=== PATIENT | male | born 2000 | race Caucasian/White ===

== ENCOUNTER 2021-11-30 13:25 | Emergency (ER) | payer OTHER, SELFPAY ==
[2021-11-30 13:30] VITALS: BP 161/104; PULSE 120; RESP 20; TEMP 36.6; O2SAT 99; BMI 37.5
[2021-11-30] MEDS: LIDOCAINE 2% W/EPI INJ 1 ML INJ (13:44)
[2021-11-30] MEDS: IBUPROFEN 400 MG TABLET 800 MG PO (14:23)
[2021-11-30] MEDS: BACITRACIN OINT 0.9 GM PCKT 1 APPLIC TOP (14:25)
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
== END 2021-11-30 14:38 | disposition home or self-care (01) ==
PROVIDERS: Emergency Provider Nurse Practitioner Critical Care Medicine
DX: S01.81XA Laceration without foreign body of other part of head, initial encounter (principal); R45.88 Nonsuicidal self-harm
CPT/HCPCS: 12011; 99283

== ENCOUNTER 2023-07-16 14:37 | Emergency (ER) | payer OTHER, SELFPAY ==
[2023-07-16 14:54] VITALS: BP 141/95; PULSE 94; RESP 16; TEMP 36.6; O2SAT 97; BMI 33.7
--- NOTE | 2023-07-16 15:17 | PC.NURSE ---
Pt is Gluten Free and allergic to Tylenol.
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
--- NOTE | 2023-07-16 15:36 | PC.NURSE ---
Pt reports an overuse of energy drinks and coffee. Pt states for the past several months that he has stopped dreaming in his sleep and reports insomnia.
[2023-07-16 15:37] LABS: Add Manual Diff / Slide Review NO; Basophils Absolute Auto 0 /uL (0-100); Basophils Percent Auto 0.5 % (0-2); Eosinophils Absolute Auto 100 /uL (0-450); Hematocrit 46.8 % (41-53); Hemoglobin 16.1 g/dL (13.5-17.5); Lymphocytes Absolute Auto 1300 /uL (1100-4500); Mean Corpuscular HGB Conc 34.4 % (30-36); Mean Corpuscular Hemoglobin 30.4 PG (26-34); Mean Corpuscular Volume 88.2 fL (80-100); Monocytes Absolute Auto 600 /uL (0-900); Monocytes Percent Auto 8.9 % (3-14); Neutrophils Absolute Auto 4700 /uL (1500-7000); Neutrophils Percent Auto 69.6 % (50-75); Platelet Count 208 X10^3/uL (150-400); Red Cell Distribution Width 12.8 % (11.6-14.8); White Blood Cell Count 6.8 X10^3/uL (4.5-11.0)
[2023-07-16 15:47] LABS: Appearance Urine UA CLEAR; Bilirubin Urine UA NEGATIVE (NEGATIVE); Color Urine UA YELLOW; Glucose Urine UA NEGATIVE (Negative); Ketones Urine UA NEGATIVE (NEGATIVE); Leukocyte Esterase Urine UA NEGATIVE (NEGATIVE); Nitrite Urine UA NEGATIVE (Negative); Occult Blood Urine UA NEGATIVE (Negative); Protein Urine UA NEGATIVE (Negative); Specific Gravity Urine UA >=1.030 (1.000-1.035); Urobilinogen Urine UA 0.2 E.U./dL (0.2); pH Urine UA 5.5 (4.5-8.0)
[2023-07-16 15:48] LABS: Acetaminophen < 10 ug/mL (10-30); Alanine Aminotransferase 23 IU/L (<50); Albumin 4.4 g/dL (3.5-5.0); Albumin Globulin Ratio 1.3 (1.0-2.8); Alkaline Phosphatase 52 U/L (38-126); Aspartate Aminotransferase 24 IU/L (17-59); BUN Creatinine Ratio 19.6 (6-22); Bilirubin Total 0.8 mg/dL (0.2-1.3); Blood Urea Nitrogen 19 mg/dL (9-20); Calcium 9.5 mg/dL (8.4-10.2); Carbon Dioxide 29 mmol/L (22-32); Chloride 105 mmol/L (98-107); Estimated Glomerular Filt Rate > 60 mL/min (>60); Ethanol (ETOH) < 10 mg/dL; Globulin 3.4 g/dL (1.7-4.1); Glucose 88 mg/dL (70-100); HEMOLYSIS 27 (0-50); Potassium 4.2 mmol/L (3.4-5.1); Salicylate < 1.0 mg/dL (<20); Sodium 139 mmol/L (137-145); Total Protein 7.8 g/dL (6.3-8.2)
[2023-07-16 15:52] LABS: UR Morphine/Opiate cutoff 300 Negative (Negative); Ur Creatinine Normal (Normal); Ur Specific Gravity Normal (Normal); Urine Amphetamines Negative (Negative); Urine Barbiturates Negative (Negative); Urine Benzodiazepines Negative (Negative); Urine Cocaine Negative (Negative); Urine MDMA Negative (Negative); Urine Methadone Negative (Negative); Urine Methamphetamines Negative (Negative); Urine Oxycodone Negative (Negative); Urine Phencyclidine Negative (Negative); Urine Tetrahydrocannabinol Positive (Negative); Urine Tricyclic Antidepressant Negative (Negative); Urine pH Normal (Normal)
[2023-07-16 15:53] LABS: Bacteria Urine Occasional (0-1); Culture Indicated Urine Cult Not Indicated; Mucus Urine 2+ (Negative); RBC Urine 0-1/HPF (0-5/HPF); Squamous Epithelial Cell Urine None Seen (0-5/HPF); Urine Volume 10mL (spun); WBC Urine 0-1/HPF (0-5/HPF)
[2023-07-16 15:55] LABS: COVID19 -Nasal RAPID Negative (Negative)
[2023-07-16 16:04] LABS: Free T4, Direct Thyroxine 1.19 ng/dL (0.78-2.19)
[2023-07-16 16:18] LABS: Thyroid Stimulating Hormone 0.978 uIU/mL (0.47-4.68)
[2023-07-16] MEDS: OLANZapine ODT 10 MG TAB PO (16:48)
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
--- NOTE | 2023-07-16 17:23 | PC.NURSE ---
Pt is resting in bed, respirations even and unlabored. No distress noted. This sitter remains at bedside.
--- NOTE | 2023-07-16 18:28 | PC.NURSE ---
Spoke with Clif ALLEN at [facility] [phone]. They are working on a plan to accept this patient for IP treatment. They will call back with confirmation. Pt is currently asleep, if patient wakes-up please call Clif ALLEN so he can have a conversation with the patient.
[2023-07-16 19:07] VITALS: BP 116/76; PULSE 103; RESP 16; O2SAT 97
--- NOTE | 2023-07-16 20:35 | PC.NURSE ---
report called to ALEJANDRO Calvert at [facility], report given to EMS crew, pt putting scrubs on before transfer, pt cooperative with care
== END 2023-07-16 20:39 ==
PROVIDERS: Emergency Provider Emergency Medicine
DX: R45.851 Suicidal ideations (principal); R44.0 Auditory hallucinations; Z20.822 Contact with and (suspected) exposure to COVID-19
CPT/HCPCS: 36415; 80053; 80305; 80320; 80329; 81001; 84439; 84443; 85025; 87635; 99284; G0480

== ENCOUNTER 2023-07-26 21:45 | Emergency (ER) | payer MEDICAID, OTHER, SELFPAY ==
[2023-07-26 21:45] VITALS: BP 161/78; PULSE 118; RESP 16; TEMP 36.6; O2SAT 98; BMI 33.7
--- NOTE | 2023-07-26 21:54 | ED.PSYCH ---
HPI - Psych General Chief Complaint: Psychiatric Symptoms Stated Complaint: ANNALEE -> SI Time Seen by Provider: 07/26/23 21:49 History of Present Illness HPI Narrative: 23-year-old male with history of depression, PTSD presents with law enforcement for suicidal gesture. Patient took a picture of himself holding a knife and sent it to his cousin, who called 911. Patient had made several superficial cuts to his inner left forearm using scissors and ran into the kang. He states that he has experienced several stressors lately and was angry. He states that after talking to his cousin he feels much calmer. He does not want to kill himself, he denies suicidal intention or wanting to . Denies drug or alcohol use this evening. Related Data Previous Rx's Medication Instructions Recorded mupirocin 2 % topical ointment 1 applic topical BID #15 grams 11/30/21 Allergies Allergy/AdvReac Type Severity Reaction Status Date / Time Sulfa (Sulfonamide Allergy Unknown Verified 11/30/21 13:34 Antibiotics) acetaminophen AdvReac Intermediate Redness of Verified 11/30/21 13:38 Skin Review of Systems Review of Systems Narrative: See HPI Patient History Social History Smoking Status: Current every day smoker Smoking Status: Current every day smoker tobacco type: vaping alcohol intake frequency: holidays/special occasions only Substance Use Type: marijuana Exam Initial Vital Signs Initial Vital Signs: Vital Signs Temperature 98 F 07/26/23 21:45 Pulse Rate 118 H 07/26/23 21:45 Respiratory Rate 16 07/26/23 21:45 Blood Pressure 161/78 H 07/26/23 21:45 Pulse Oximetry 98 07/26/23 21:45 Oxygen Delivery Method Room Air 07/26/23 21:45 Const: Awake, alert, no acute distress, nontoxic appearing MSK: Multiple superficial abrasions in her left forearm, neurovascularly intact Skin: Warm, Dry, 5-6 superficial abrasions in her left forearm Neuro: AO x3, CN II-XII grossly intact, moves all extremities Psych: Flat affect, neutral mood, denying suicidal or homicidal ideations Course Orders Ordered: ED Orders 07/26/23 21:53 EKG-12 Lead Stat 07/26/23 21:59 UA Complete [Urinalysis and Microscopic] Stat Urine Drug Screen, Rapid Stat 07/26/23 22:00 Acetaminophen Stat CBC Auto Diff [Complete Blood Count AUTO DIFF] Stat CMP [Comprehensive Metabolic Panel] Stat Ethanol (ETOH) Stat Salicylate Stat TSH [Thyroid Stimulating Hormone] Stat 07/26/23 22:33 COVID19 -Nasal RAPID Stat Discontinued Medications Diphtheria/Tetanus/Acell Pertussis (Tet,Diph,Pertuss(Acell),Vac/Pf 0.5 Ml Syringe) 0.5 ml IM .ONCE ONE Stop: 07/26/23 21:55 Last Admin: 07/26/23 23:10 Dose: 0.5 ml Documented By: RODNEY Vital Signs Vital signs: Vital Signs - 8 hr 07/26/23 21:45 Temperature 98 F Pulse Rate 118 H Respiratory Rate 16 Blood Pressure 161/78 H Pulse Oximetry 98 Oxygen Delivery Method Room Air MDM - Psych Differential Diagnosis Differential diagnosis: Likely acute psychosis, chronic schizophrenia and suicidal ideation Lab Data 07/26/23 22:00 07/26/23 22:00 Labs: Lab Results 07/26/23 07/26/23 07/26/23 Range/Units 21:59 21:59 22:00 WBC 6.5 (4.5-11.0) X10^3/uL RBC 5.19 (4.5-5.9) X10^6/uL Hgb 15.7 (13.5-17.5) g/dL Hct 45.1 (41-53) % MCV 86.8 (80-100) fL MCH 30.3 (26-34) PG MCHC 34.9 (30-36) % RDW 12.7 (11.6-14.8) % Plt Count 210 (150-400) X10^3/uL Neut % (Auto) 63.5 (50-75) % Lymph % (Auto) 25.4 (25-40) % [place] % (Auto) 8.7 (3-14) % Eos % (Auto) 1.9 L (2-4) % Baso % (Auto) 0.5 (0-2) % Neut # (Auto) 4100 (5003-3661) /uL Lymph # (Auto) 1600 (4041-2523) /uL [place] # (Auto) 600 (0-900) /uL Eos # (Auto) 100 (0-450) /uL Baso # (Auto) 0 (0-100) /uL Sodium 136 L (137-145) mmol/L Potassium 3.8 (3.4-5.1) mmol/L Chloride 105 (98-107) mmol/L Carbon Dioxide 25 (22-32) mmol/L BUN 19 (9-20) mg/dL Creatinine 1.12 (0.66-1.25) mg/dL Estimated GFR > 60 (>60) mL/min BUN/Creatinine Ratio 17.0 (6-22) Glucose 148 H (70-100) mg/dL Calcium 9.3 (8.4-10.2) mg/dL Total Bilirubin 0.4 (0.2-1.3) mg/dL AST 22 (17-59) IU/L ALT 30 (<50) IU/L Alkaline Phosphatase 57 (38-126) U/L Total Protein 7.6 (6.3-8.2) g/dL Albumin 4.7 (3.5-5.0) g/dL Globulin 2.9 (1.7-4.1) g/dL Albumin/Globulin Ratio 1.6 (1.0-2.8) TSH 2.53 D (0.47-4.68) uIU/mL Urine Color Yellow Urine Appearance Clear Urine pH 5.5 TNP (4.5-8.0) Ur Specific [place] 1.020 (1.000-1.035) Urine Protein Negative (Negative) Urine Glucose (UA) Negative (Negative) g/dL Urine Ketones Negative (NEGATIVE) Urine Occult Blood Negative (Negative) Urine Nitrate Negative (Negative) Urine Bilirubin Negative (NEGATIVE) Urine Urobilinogen 0.2 (0.2) E.U./dL Ur Leukocyte Esterase Negative (NEGATIVE) Urine RBC None seen (0-5/HPF) Urine WBC None seen (0-5/HPF) Ur Squamous Epith Cells None seen (0-5/HPF) Urine Bacteria None seen (None) Ur Culture Indicated? Cult not indicated Vol Urine Centrifuged 10ml (spun) Salicylates < 1.0 (<20) mg/dL U Opiates 300ng/mL cut Negative (Negative) Ur Oxycodone Screen Negative (Negative) Urine Methadone Screen Negative (Negative) Acetaminophen < 10 (10-30) ug/mL Ur Barbiturates Screen Negative (Negative) U Tricyclic Antidepress Negative (Negative) Ur Phencyclidine Scrn Negative (Negative) Ur Amphetamines Screen Negative (Negative) U Methamphetamines Scrn Negative (Negative) Ur MDMA Scrn (Ecstasy) Negative (Negative) U Benzodiazepines Scrn Negative (Negative) Urine Cocaine Screen Negative (Negative) U Marijuana (THC) Screen Positive H (Negative) Urine Specific [place] TNP Ethyl Alcohol < 10 ( - 10) mg/dL Ur Creatinine TNP SARS-CoV-2 (PCR) (Negative) 07/26/23 Range/Units 22:33 WBC (4.5-11.0) X10^3/uL RBC (4.5-5.9) X10^6/uL Hgb (13.5-17.5) g/dL Hct (41-53) % MCV (80-100) fL MCH (26-34) PG MCHC (30-36) % RDW (11.6-14.8) % Plt Count (150-400) X10^3/uL Neut % (Auto) (50-75) % Lymph % (Auto) (25-40) % [place] % (Auto) (3-14) % Eos % (Auto) (2-4) % Baso % (Auto) (0-2) % Neut # (Auto) (1415-2050) /uL Lymph # (Auto) (3833-8449) /uL [place] # (Auto) (0-900) /uL Eos # (Auto) (0-450) /uL Baso # (Auto) (0-100) /uL Sodium (137-145) mmol/L Potassium (3.4-5.1) mmol/L Chloride (98-107) mmol/L Carbon Dioxide (22-32) mmol/L BUN (9-20) mg/dL Creatinine (0.66-1.25) mg/dL Estimated GFR (>60) mL/min BUN/Creatinine Ratio (6-22) Glucose (70-100) mg/dL Calcium (8.4-10.2) mg/dL Total Bilirubin (0.2-1.3) mg/dL AST (17-59) IU/L ALT (<50) IU/L Alkaline Phosphatase (38-126) U/L Total Protein (6.3-8.2) g/dL Albumin (3.5-5.0) g/dL Globulin (1.7-4.1) g/dL Albumin/Globulin Ratio (1.0-2.8) TSH (0.47-4.68) uIU/mL Urine Color Urine Appearance Urine pH (4.5-8.0) Ur Specific [place] (1.000-1.035) Urine Protein (Negative) Urine Glucose (UA) (Negative) g/dL Urine Ketones (NEGATIVE) Urine Occult Blood (Negative) Urine Nitrate (Negative) Urine Bilirubin (NEGATIVE) Urine Urobilinogen (0.2) E.U./dL Ur Leukocyte Esterase (NEGATIVE) Urine RBC (0-5/HPF) Urine WBC (0-5/HPF) Ur Squamous Epith Cells (0-5/HPF) Urine Bacteria (None) Ur Culture Indicated? Vol Urine Centrifuged Salicylates (<20) mg/dL U Opiates 300ng/mL cut (Negative) Ur Oxycodone Screen (Negative) Urine Methadone Screen (Negative) Acetaminophen (10-30) ug/mL Ur Barbiturates Screen (Negative) U Tricyclic Antidepress (Negative) Ur Phencyclidine Scrn (Negative) Ur Amphetamines Screen (Negative) U Methamphetamines Scrn (Negative) Ur MDMA Scrn (Ecstasy) (Negative) U Benzodiazepines Scrn (Negative) Urine Cocaine Screen (Negative) U Marijuana (THC) Screen (Negative) Urine Specific [place] Ethyl Alcohol ( - 10) mg/dL Ur Creatinine SARS-CoV-2 (PCR) Negative (Negative) MDM Narrative Medical decision making narrative: Patient with several superficial lacerations on his inner left arm stating that he initially wanted to hurt himself, however now stating that he does not have any suicidal intentions and was merely angry and stressed. He states that he was able to talk to his cousin who calm him down. Patient medically cleared, has been calm and cooperative, continues to deny any suicidal or homicidal ideations. We were able to contact his family members, particularly his grandmother, who came to the emergency department. She was able to safety plan with the patient she was no reservations taking him home concerning his safety. Patient discharged to the care of his family in stable condition Discharge Plan Departure Patient Disposition: Home Clinical Impression: Stress reaction Instructions: Stress (Alternative Therapy) Activity Restrictions/Additional Instructions: Continue to take all of your psychiatric medications as prescribed. Follow up with your counselor. Call 911 or [phone] if you experience worsening suicidal thoughts Prescriptions: No Action mupirocin 2 % ointment 1 applic topical BID Qty: 15 0RF Stand Alone Forms: Patient Portal/API
[2023-07-26 22:14] LABS: Add Manual Diff / Slide Review NO; Basophils Absolute Auto 0 /uL (0-100); Basophils Percent Auto 0.5 % (0-2); Eosinophils Absolute Auto 100 /uL (0-450); Eosinophils Percent Auto 1.9 % (2-4); Hematocrit 45.1 % (41-53); Hemoglobin 15.7 g/dL (13.5-17.5); Lymphocytes Absolute Auto 1600 /uL (1100-4500); Lymphocytes Percent Auto 25.4 % (25-40); Mean Corpuscular HGB Conc 34.9 % (30-36); Mean Corpuscular Hemoglobin 30.3 PG (26-34); Mean Corpuscular Volume 86.8 fL (80-100); Monocytes Absolute Auto 600 /uL (0-900); Monocytes Percent Auto 8.7 % (3-14); Neutrophils Absolute Auto 4100 /uL (1500-7000); Neutrophils Percent Auto 63.5 % (50-75); Platelet Count 210 X10^3/uL (150-400); Red Blood Cell Count 5.19 X10^6/uL (4.5-5.9); Red Cell Distribution Width 12.7 % (11.6-14.8); White Blood Cell Count 6.5 X10^3/uL (4.5-11.0)
[2023-07-26 22:24] LABS: Appearance Urine UA CLEAR; Bilirubin Urine UA NEGATIVE (NEGATIVE); Color Urine UA YELLOW; Glucose Urine UA NEGATIVE (Negative); Ketones Urine UA NEGATIVE (NEGATIVE); Leukocyte Esterase Urine UA NEGATIVE (NEGATIVE); Nitrite Urine UA NEGATIVE (Negative); Occult Blood Urine UA NEGATIVE (Negative); Protein Urine UA NEGATIVE (Negative); Urobilinogen Urine UA 0.2 E.U./dL (0.2); pH Urine UA 5.5 (4.5-8.0)
[2023-07-26 22:28] LABS: UR Morphine/Opiate cutoff 300 Negative (Negative); Urine Amphetamines Negative (Negative); Urine Barbiturates Negative (Negative); Urine Benzodiazepines Negative (Negative); Urine Cocaine Negative (Negative); Urine MDMA Negative (Negative); Urine Methadone Negative (Negative); Urine Methamphetamines Negative (Negative); Urine Phencyclidine Negative (Negative); Urine Tetrahydrocannabinol Positive (Negative); Urine Tricyclic Antidepressant Negative (Negative)
[2023-07-26 22:29] LABS: Urine Oxycodone Negative (Negative)
[2023-07-26 22:34] LABS: Bacteria Urine None Seen; Culture Indicated Urine Cult Not Indicated; RBC Urine None Seen (0-5/HPF); Squamous Epithelial Cell Urine None Seen (0-5/HPF); Urine Volume 10mL (spun); WBC Urine None Seen (0-5/HPF)
--- NOTE | 2023-07-26 22:49 | PC.NURSE ---
07/25 @ 2097 Patient up to the BR
[2023-07-26 22:50] LABS: COVID19 -Nasal RAPID Negative (Negative)
[2023-07-26 22:58] LABS: Acetaminophen < 10 ug/mL (10-30); Alanine Aminotransferase 30 IU/L (<50); Albumin 4.7 g/dL (3.5-5.0); Albumin Globulin Ratio 1.6 (1.0-2.8); Alkaline Phosphatase 57 U/L (38-126); Aspartate Aminotransferase 22 IU/L (17-59); Bilirubin Total 0.4 mg/dL (0.2-1.3); Blood Urea Nitrogen 19 mg/dL (9-20); Calcium 9.3 mg/dL (8.4-10.2); Carbon Dioxide 25 mmol/L (22-32); Chloride 105 mmol/L (98-107); Estimated Glomerular Filt Rate > 60 mL/min (>60); Ethanol (ETOH) < 10 mg/dL; Globulin 2.9 g/dL (1.7-4.1); Glucose 148 mg/dL (70-100); HEMOLYSIS < 15 (0-50); Potassium 3.8 mmol/L (3.4-5.1); Salicylate < 1.0 mg/dL (<20); Sodium 136 mmol/L (137-145); Total Protein 7.6 g/dL (6.3-8.2)
[2023-07-26] MEDS: TET,DIPH,PERTUSS(ACELL),VAC/PF 0.5 ML SYRINGE IM (23:10)
[2023-07-26 23:28] LABS: Thyroid Stimulating Hormone 2.53 uIU/mL (0.47-4.68)
--- NOTE | 2023-07-26 23:48 | PC.NURSE ---
Pt laying in bed with daughters at the bedside. This Rn gave them update on pt plan of care and that this facility is working on getting her transferred to a higher level of care. Pt is A&Ox4 and denies nausea or pain. Respirations are regular and unlabored.
[2023-07-27 00:27] VITALS: BP 145/84; PULSE 84; RESP 20; O2SAT 98
== END 2023-07-27 00:30 | disposition home or self-care (01) ==
PROVIDERS: Emergency Provider Emergency Medicine
DX: F43.9 Reaction to severe stress, unspecified (principal); S51.812A Laceration without foreign body of left forearm, initial encounter; X78.1XXA Intentional self-harm by knife, initial encounter; Z23 Encounter for immunization
CPT/HCPCS: 36415; 80053; 80305; 80320; 80329; 81001; 84443; 85025; 87635; 90471; 93005; 99284; 90715; G0480

== ENCOUNTER 2023-08-15 20:20 | Emergency (ER) | payer OTHER, MEDICAID, SELFPAY ==
[2023-08-15 20:23] VITALS: PULSE 80; O2SAT 97
[2023-08-15 20:24] VITALS: BP 147/81; PULSE 98; O2SAT 96
[2023-08-15 20:25] VITALS: BP 147/82; PULSE 104; RESP 16; TEMP 36.6; O2SAT 100; BMI 33.7
--- NOTE | 2023-08-15 20:29 | ED.PSYCH ---
HPI - Psych General Chief Complaint: Psychiatric Symptoms Stated Complaint: ANNALEE hitting self with hammer Time Seen by Provider: 08/15/23 20:21 History of Present Illness HPI Narrative: 23-year-old male presents as an ANNALEE by law enforcement officers for self-harm. Patient has sent a video to his girlfriend actively hitting himself in the head with a hammer. I was not able to view this video, however law enforcement states that they viewed the video and he does appear to be tapping himself in the head with a hammer, albeit not very forcefully. When they arrived at the patient's residence he had multiple scratches over his cheeks and face. He stated that he has been punching himself in the head. Patient states that he does not feel his medications are working and ?people are lying to me?. Currently does not want to kill himself. Patient states he was not want to seek inpatient treatment and medication adjustment. Patient has been seen several times since July for psychiatric complaints. Related Data Previous Rx's Medication Instructions Recorded mupirocin 2 % topical ointment 1 applic topical BID #15 grams 11/30/21 Allergies Allergy/AdvReac Type Severity Reaction Status Date / Time Sulfa (Sulfonamide Allergy Unknown Verified 11/30/21 13:34 Antibiotics) acetaminophen AdvReac Intermediate Redness of Verified 11/30/21 13:38 Skin Review of Systems Review of Systems Narrative: See HPI Patient History Social History Smoking Status: Current every day smoker Smoking Status: Current every day smoker tobacco type: vaping alcohol intake frequency: holidays/special occasions only Substance Use Type: marijuana Exam Initial Vital Signs Initial Vital Signs: Vital Signs Pulse Rate 80 08/15/23 20:23 Pulse Oximetry 97 08/15/23 20:23 Oxygen Delivery Method Room Air 08/15/23 20:23 Const: Awake, alert, no acute distress, nontoxic appearing HEENT: No obvious skull trauma, no sams sign, no hemotympanum, EOMI, PERRL Cardiac: regular rate, regular rhythm RESP: unlabored, clear bilaterally, no wheezing GI: Soft, nontender, nondistended, no rebound, no guarding MSK: Atraumatic, full range of motion, pulses equal Skin: Superficial abrasions over bilateral cheeks Neuro: AO x3, CN II-XII grossly intact, moves all extremities Psych: Flat affect, normal mood, denying SI, denying HI, poor insight Course Orders Ordered: ED Orders 08/15/23 20:28 CT head/brain wo con Stat 08/15/23 20:40 COVID19 -Nasal RAPID Stat 08/15/23 20:41 UA Complete [Urinalysis and Microscopic] Stat Urine Drug Screen, Rapid Stat 08/15/23 20:45 Acetaminophen Stat CBC Auto Diff [Complete Blood Count AUTO DIFF] Stat CMP [Comprehensive Metabolic Panel] Stat Ethanol (ETOH) Stat Salicylate Stat Vital Signs Vital signs: Vital Signs - 8 hr 08/15/23 20:23 08/15/23 20:24 08/15/23 20:24 Temperature Pulse Rate 80 98 H Respiratory Rate Blood Pressure 147/81 H Pulse Oximetry 97 96 Oxygen Delivery Method Room Air Room Air 08/15/23 20:25 08/16/23 01:14 Temperature 97.8 F Pulse Rate 104 H 68 Respiratory Rate 16 18 Blood Pressure 147/82 H 136/82 Pulse Oximetry 100 97 Oxygen Delivery Method Room Air Room Air MDM - Psych Differential Diagnosis Differential diagnosis: Likely acute psychosis, chronic schizophrenia and suicidal ideation Lab Data 08/15/23 20:45 08/15/23 20:45 Labs: Lab Results 08/15/23 08/15/23 08/15/23 Range/Units 20:40 20:41 20:41 WBC (4.5-11.0) X10^3/uL RBC (4.5-5.9) X10^6/uL Hgb (13.5-17.5) g/dL Hct (41-53) % MCV (80-100) fL MCH (26-34) PG MCHC (30-36) % RDW (11.6-14.8) % Plt Count (150-400) X10^3/uL Neut % (Auto) (50-75) % Lymph % (Auto) (25-40) % [place] % (Auto) (3-14) % Eos % (Auto) (2-4) % Baso % (Auto) (0-2) % Neut # (Auto) (1464-6764) /uL Lymph # (Auto) (2708-2954) /uL [place] # (Auto) (0-900) /uL Eos # (Auto) (0-450) /uL Baso # (Auto) (0-100) /uL Sodium (137-145) mmol/L Potassium (3.4-5.1) mmol/L Chloride (98-107) mmol/L Carbon Dioxide (22-32) mmol/L BUN (9-20) mg/dL Creatinine (0.66-1.25) mg/dL Estimated GFR (>60) mL/min BUN/Creatinine Ratio (6-22) Glucose (70-100) mg/dL Calcium (8.4-10.2) mg/dL Total Bilirubin (0.2-1.3) mg/dL AST (17-59) IU/L ALT (<50) IU/L Alkaline Phosphatase (38-126) U/L Total Protein (6.3-8.2) g/dL Albumin (3.5-5.0) g/dL Globulin (1.7-4.1) g/dL Albumin/Globulin Ratio (1.0-2.8) Urine Color Yellow Urine Appearance Clear Urine pH 5.5 Normal (4.5-8.0) Ur Specific [place] >=1.030 H (1.000-1.035) Urine Protein Trace H (Negative) Urine Glucose (UA) Negative (Negative) g/dL Urine Ketones Negative (NEGATIVE) Urine Occult Blood Negative (Negative) Urine Nitrate Negative (Negative) Urine Bilirubin Negative (NEGATIVE) Urine Urobilinogen 0.2 (0.2) E.U./dL Ur Leukocyte Esterase Negative (NEGATIVE) Urine RBC None seen (0-5/HPF) Urine WBC None seen (0-5/HPF) Ur Squamous Epith Cells None seen (0-5/HPF) Urine Bacteria None seen (None) Ur Culture Indicated? Cult not indicated Vol Urine Centrifuged 10ml (spun) Salicylates (<20) mg/dL U Opiates 300ng/mL cut Negative (Negative) Ur Oxycodone Screen Negative (Negative) Urine Methadone Screen Negative (Negative) Acetaminophen (10-30) ug/mL Ur Barbiturates Screen Negative (Negative) U Tricyclic Antidepress Negative (Negative) Ur Phencyclidine Scrn Negative (Negative) Ur Amphetamines Screen Negative (Negative) U Methamphetamines Scrn Negative (Negative) Ur MDMA Scrn (Ecstasy) Negative (Negative) U Benzodiazepines Scrn Negative (Negative) Urine Cocaine Screen Negative (Negative) U Marijuana (THC) Screen Positive H (Negative) Urine Specific [place] Normal (Normal) Ethyl Alcohol ( - 10) mg/dL Ur Creatinine Normal (Normal) SARS-CoV-2 (PCR) Negative (Negative) 08/15/23 Range/Units 20:45 WBC 9.5 (4.5-11.0) X10^3/uL RBC 5.26 (4.5-5.9) X10^6/uL Hgb 16.0 (13.5-17.5) g/dL Hct 46.0 (41-53) % MCV 87.5 (80-100) fL MCH 30.4 (26-34) PG MCHC 34.7 (30-36) % RDW 12.8 (11.6-14.8) % Plt Count 257 (150-400) X10^3/uL Neut % (Auto) 67.3 (50-75) % Lymph % (Auto) 21.8 L (25-40) % [place] % (Auto) 8.9 (3-14) % Eos % (Auto) 1.6 L (2-4) % Baso % (Auto) 0.4 (0-2) % Neut # (Auto) 6400 (9757-7189) /uL Lymph # (Auto) 2100 (7563-4386) /uL [place] # (Auto) 800 (0-900) /uL Eos # (Auto) 100 (0-450) /uL Baso # (Auto) 0 (0-100) /uL Sodium 138 (137-145) mmol/L Potassium 3.9 (3.4-5.1) mmol/L Chloride 106 (98-107) mmol/L Carbon Dioxide 23 (22-32) mmol/L BUN 21 H (9-20) mg/dL Creatinine 1.06 (0.66-1.25) mg/dL Estimated GFR > 60 (>60) mL/min BUN/Creatinine Ratio 19.8 (6-22) Glucose 102 H (70-100) mg/dL Calcium 9.5 (8.4-10.2) mg/dL Total Bilirubin 0.6 (0.2-1.3) mg/dL AST 29 (17-59) IU/L ALT 42 (<50) IU/L Alkaline Phosphatase 61 (38-126) U/L Total Protein 8.2 (6.3-8.2) g/dL Albumin 5.0 (3.5-5.0) g/dL Globulin 3.2 (1.7-4.1) g/dL Albumin/Globulin Ratio 1.6 (1.0-2.8) Urine Color Urine Appearance Urine pH (4.5-8.0) Ur Specific [place] (1.000-1.035) Urine Protein (Negative) Urine Glucose (UA) (Negative) g/dL Urine Ketones (NEGATIVE) Urine Occult Blood (Negative) Urine Nitrate (Negative) Urine Bilirubin (NEGATIVE) Urine Urobilinogen (0.2) E.U./dL Ur Leukocyte Esterase (NEGATIVE) Urine RBC (0-5/HPF) Urine WBC (0-5/HPF) Ur Squamous Epith Cells (0-5/HPF) Urine Bacteria (None) Ur Culture Indicated? Vol Urine Centrifuged Salicylates < 1.0 (<20) mg/dL U Opiates 300ng/mL cut (Negative) Ur Oxycodone Screen (Negative) Urine Methadone Screen (Negative) Acetaminophen < 10 (10-30) ug/mL Ur Barbiturates Screen (Negative) U Tricyclic Antidepress (Negative) Ur Phencyclidine Scrn (Negative) Ur Amphetamines Screen (Negative) U Methamphetamines Scrn (Negative) Ur MDMA Scrn (Ecstasy) (Negative) U Benzodiazepines Scrn (Negative) Urine Cocaine Screen (Negative) U Marijuana (THC) Screen (Negative) Urine Specific [place] (Normal) Ethyl Alcohol < 10 ( - 10) mg/dL Ur Creatinine (Normal) SARS-CoV-2 (PCR) (Negative) Imaging Data CT scan - head: My Impression: PROCEDURE: CT HEAD/BRAIN WO CON INDICATIONS: PUNCHING/HITTING SELF IN HEAD, PSYCH TECHNIQUE: Noncontrast 4.5 mm thick angled axial sections acquired from the foramen magnum to the vertex, with coronal and sagittal reformats. For radiation dose reduction, the following was used: automated exposure control, adjustment of mA and/or kV according to patient size. COMPARISON: [facility], CT, HEAD WITHOUT CONTRAST, 09/12/2008, 12:57. FINDINGS: Image quality: Diagnostic. CSF spaces: Basal cisterns are patent. No extra-axial fluid collections. Ventricles are normal in size and shape. Brain: No midline shift. No intracranial masses or hemorrhage. Benitez-white matter interface is normal. Skull and face: Calvarium and visualized facial bones are intact, without suspicious lesions. Sinuses: Trace mucosal thickening in the left maxillary sinus. Mastoids are clear. IMPRESSION: No acute intracranial abnormality. Dictated by: Juventino Hernandez M.D. on 08/15/2023 at 21:14 Approved by: Juventino Hernandez M.D. on 08/15/2023 at 21:16 [facility] Narrative Medical decision making narrative: Brought in by law enforcement for self-harming. Currently denies homicidal or suicidal ideation, however this is patient's 3rd visit within 1 month for psychiatric complaints. I saw patient last time who had made another suicidal gesture, this time to his cousin. He states that he was under a lot of stress recently and he does not feel his medications are working. He states that he does not want to have any inpatient treatment, however at this time since there has been multiple similar episodes in the last month I believe that DCR should be involved. Medical clearance labs ordered. CT of the brain ordered due to history of blunt trauma Laboratory work and imaging reviewed, no significant abnormalities identified. DCR dispatched. Case was discussed with DCR. After interviewing the patient safety planning was able to be made with patient and care plan discussed with patient and family at bedside. He has upcoming therapy appointments and will be followed by the crisis center for at least a week after leaving the emergency department. Patient's grandmother arrived to take the patient home and we will watch over him this evening. Discharge Plan Departure Patient Disposition: Home Clinical Impression: Suicidal ideation Instructions: DI for Suicidal Ideation-Adult Activity Restrictions/Additional Instructions: Please keep your follow up appointments as prescribed. If you notice worsening suicidal thoughts please call [phone] Prescriptions: No Action mupirocin 2 % ointment 1 applic topical BID Qty: 15 0RF Stand Alone Forms: Patient Portal/API
[2023-08-15 20:56] LABS: Appearance Urine UA CLEAR; Bilirubin Urine UA NEGATIVE (NEGATIVE); Color Urine UA YELLOW; Glucose Urine UA NEGATIVE (Negative); Ketones Urine UA NEGATIVE (NEGATIVE); Leukocyte Esterase Urine UA NEGATIVE (NEGATIVE); Nitrite Urine UA NEGATIVE (Negative); Occult Blood Urine UA NEGATIVE (Negative); Protein Urine UA TRACE (Negative); Specific Gravity Urine UA >=1.030 (1.000-1.035); Urobilinogen Urine UA 0.2 E.U./dL (0.2); pH Urine UA 5.5 (4.5-8.0)
[2023-08-15 21:01] LABS: UR Morphine/Opiate cutoff 300 Negative (Negative); Ur Creatinine Normal (Normal); Ur Specific Gravity Normal (Normal); Urine Amphetamines Negative (Negative); Urine Barbiturates Negative (Negative); Urine Benzodiazepines Negative (Negative); Urine Cocaine Negative (Negative); Urine MDMA Negative (Negative); Urine Methadone Negative (Negative); Urine Methamphetamines Negative (Negative); Urine Oxycodone Negative (Negative); Urine Phencyclidine Negative (Negative); Urine Tetrahydrocannabinol Positive (Negative); Urine Tricyclic Antidepressant Negative (Negative); Urine pH Normal (Normal)
[2023-08-15 21:02] LABS: COVID19 -Nasal RAPID Negative (Negative)
[2023-08-15 21:03] LABS: Urine Volume 10mL (spun)
[2023-08-15 21:03] LABS: Add Manual Diff / Slide Review NO; Basophils Absolute Auto 0 /uL (0-100); Basophils Percent Auto 0.4 % (0-2); Eosinophils Absolute Auto 100 /uL (0-450); Eosinophils Percent Auto 1.6 % (2-4); Lymphocytes Absolute Auto 2100 /uL (1100-4500); Lymphocytes Percent Auto 21.8 % (25-40); Mean Corpuscular HGB Conc 34.7 % (30-36); Mean Corpuscular Hemoglobin 30.4 PG (26-34); Mean Corpuscular Volume 87.5 fL (80-100); Monocytes Absolute Auto 800 /uL (0-900); Monocytes Percent Auto 8.9 % (3-14); Neutrophils Absolute Auto 6400 /uL (1500-7000); Neutrophils Percent Auto 67.3 % (50-75); Platelet Count 257 X10^3/uL (150-400); Red Blood Cell Count 5.26 X10^6/uL (4.5-5.9); Red Cell Distribution Width 12.8 % (11.6-14.8); White Blood Cell Count 9.5 X10^3/uL (4.5-11.0)
[2023-08-15 21:04] LABS: Bacteria Urine None Seen; Culture Indicated Urine Cult Not Indicated; RBC Urine None Seen (0-5/HPF); Squamous Epithelial Cell Urine None Seen (0-5/HPF); WBC Urine None Seen (0-5/HPF)
[2023-08-15 21:05] LABS: Acetaminophen < 10 ug/mL (10-30); Alanine Aminotransferase 42 IU/L (<50); Albumin Globulin Ratio 1.6 (1.0-2.8); Alkaline Phosphatase 61 U/L (38-126); Aspartate Aminotransferase 29 IU/L (17-59); BUN Creatinine Ratio 19.8 (6-22); Bilirubin Total 0.6 mg/dL (0.2-1.3); Blood Urea Nitrogen 21 mg/dL (9-20); Calcium 9.5 mg/dL (8.4-10.2); Carbon Dioxide 23 mmol/L (22-32); Chloride 106 mmol/L (98-107); Estimated Glomerular Filt Rate > 60 mL/min (>60); Ethanol (ETOH) < 10 mg/dL; Globulin 3.2 g/dL (1.7-4.1); Glucose 102 mg/dL (70-100); HEMOLYSIS < 15 (0-50); Potassium 3.9 mmol/L (3.4-5.1); Salicylate < 1.0 mg/dL (<20); Sodium 138 mmol/L (137-145); Total Protein 8.2 g/dL (6.3-8.2)
--- NOTE | 2023-08-16 00:17 | PC.NURSE ---
BED MAKER note: Patient is talking to DCR Dharmesh. Patient is laying in bed.
[2023-08-16 01:14] VITALS: BP 136/82; PULSE 68; RESP 18; O2SAT 97
== END 2023-08-16 01:26 | disposition home or self-care (01) ==
PROVIDERS: Emergency Provider Emergency Medicine
DX: R45.851 Suicidal ideations (principal); S00.81XA Abrasion of other part of head, initial encounter; W22.8XXA Striking against or struck by other objects, initial encounter
CPT/HCPCS: 70450; 80053; 80305; 80320; 80329; 81001; 85025; 87635; 99284; G0480